=== PATIENT | female | born 2000 | race Caucasian/White ===

== ENCOUNTER 2020-11-09 15:32 | Emergency (ER) | payer SELFPAY ==
--- NOTE | 2020-11-09 15:44 | ED.FEMALEGU ---
HPI - Female Genitourinary General Chief complaint: Urogenital-Female Stated complaint: Poss uti Time Seen by Provider: 11/09/20 16:09 History of Present Illness HPI Narrative: Gume Henderson is a 20 yo female with no PMH who [facility] with complaints of dysuria x1 week. She is here for treatment; states she has lower abdominal pressure; denies concern for STD; denies history of stone, little bit of blood in urine 3 days ago but otherwise has cleared up Related Data Allergies Allergy/AdvReac Type Severity Reaction Status Date / Time No Known Allergies Allergy Unknown Verified 11/09/20 15:39 Review of Systems Review of Systems: Narrative: CONSTITUTIONAL: Denies fever, chills, sweats. EYES: Denies visual changes, redness, discharge. ENT: Denies rhinorrhea, congestion, sore throat, otalgia. CARDIOVASCULAR: Denies chest pain, palpitations, edema. RESPIRATORY: Denies dyspnea, wheezing, cough GASTROINTESTINAL: Denies abdominal pain, nausea, vomiting, diarrhea. GENITOURINARY: Has dysuria, no hematuria, abnormal discharge SKIN: Denies rash or itching. NEUROLOGIC: Denies numbness, or focal weakness. PSYCHIATRIC: Denies anxiety or depression. PMFSH Past Medical History Medical History UTI (urinary tract infection) Family History Family History (Updated 11/09/20 @ 16:11 by Mercedes Ybarra CNP) Other No acute medical problems Social History Social History (Updated 11/09/20 @ 16:24 by Mercedes Ybarra CNP) Smoking packs per day: 1 Smoking cigarettes per day: 20.0 Smoking status: Current every day smoker Alcohol intake: current Alcohol use details: Patient states drinks excessively Comments At time of signature, I agree with nursing past medical, surgical, social and family history. There is no relevant family history pertinent to the presenting complaint. Exam Narrative: Exam Narrative: GENERAL: This is a well-nourished, well-developed patient, in mild distress. HEAD: normocephalic, atraumatic. EYES: Sclera clear/white. Vision is grossly intact. EARS: External ears normal, . Hearing grossly intact. NOSE: External nose normal without nasal discharge, nares without redness, no rhinorrhea. THROAT: Mucous membranes moist, NECK: Neck supple, CARDIOVASCULAR: Regular rate and rhythm without murmurs, gallops, or rubs. RESPIRATORY: Clear to auscultation. Breath sounds equal bilaterally. No wheezes, rales, or rhonchi. GASTROINTESTINAL: Abdomen soft, lower abdominal mild tender, SKIN: warm, intact with no suspicious lesions or rash, good texture and turgor. NEURO: awake, alert, and oriented to person, place and time. There were no obvious focal neurologic abnormalities. Steady gait EXTREMITIES: Normal range of motion. BACK: Nontender without deformity Course Course Emergency Course: Gume Henderson comes to [facility] with complaints of dysuria. She had some blood in her urine couple days ago and today her dipstick on her urine is totally negative UA results are negative Discussed options for why she feels like she discussed pressure abdomen which includes early UTI and dysuria but may also be due to other gynecological conditions such as an STD. She is sexually active without protection with a single partner; after discussion we will send her urine off for GC and chlamydia and will call her if it is positive to come back for treatment, with Rocephin and doxy. Does not believe that that is going to be the problem and and will follow up with her primary care physician if symptoms continue If pain worsens or begins to have fever, she is to the ER Vital Signs Vital signs: Vital Signs Temperature 97.9 F 11/09/20 15:50 Pulse Rate 69 11/09/20 15:50 Respiratory Rate 18 11/09/20 15:50 Blood Pressure 112/71 11/09/20 15:50 Pulse Oximetry 100 11/09/20 15:50 Temperature 97.9 F 11/09/20 15:50 Pulse Rate 69 11/09/20 15:50
[2020-11-09 15:50] VITALS: BP 112/71; PULSE 69; RESP 18; TEMP 36.6; O2SAT 100
== END 2020-11-09 16:25 | disposition home or self-care (01) ==
PROVIDERS: Emergency Provider Nurse Practitioner; PCP Nurse Practitioner Family
DX: R30.0 Dysuria (principal); F17.210 Nicotine dependence, cigarettes, uncomplicated; Z87.440 Personal history of urinary (tract) infections
CPT/HCPCS: 81003; 87086; 87491; 87591; 99213; G0463

== ENCOUNTER 2021-02-03 13:42 | Emergency (ER) | payer SELFPAY ==
[2021-02-03 13:50] VITALS: BP 116/70; PULSE 79; RESP 18; TEMP 36.9; O2SAT 100
--- NOTE | 2021-02-03 13:50 | ED.ABDPAIN ---
HPI - Abdominal Pain General Chief Complaint: Abdominal Pain Stated Complaint: abdominal pain/cramps Time Seen by Provider: 02/03/21 13:52 Source: patient and RN notes reviewed History of Present Illness HPI narrative: Patient is a 20-year-old female who presents the urgent care with complaints of terrible menstrual cramping causing nausea and vomiting. Patient states that this is normal for her and as occur monthly . Patient states that she typically gets someone to cover her shift at work and was unable to find coverage today, therefore she is needing a work note . Patient states that she has been using [id number] Tylenol/ibuprofen for the cramps and does have medication for her nausea at home. Patient states that she has not seen a [facility] in some time and has had these intermittent cramps during her menstrual cycle since she was 16, after a miscarriage. Patient currently denies any urinary symptoms such as burning, frequency, urgency. No other acute complaints. No acute distress noted. Patient aware of the plan of care. Some parts of this dictation were generated by voice recognition software and may contain typographical and/or grammatical inaccuracies. Related Data Allergies Allergy/AdvReac Type Severity Reaction Status Date / Time No Known Allergies Allergy Unknown Verified 11/09/20 15:39 Review of Systems Review of Systems: Narrative: CONSTITUTIONAL: Denies fever, chills, or sweats. EYES: Denies visual changes, redness, or discharge. ENT: Denies rhinorrhea, congestion, sore throat, or otalgia. CARDIOVASCULAR: Denies chest pain, palpitations, or edema. RESPIRATORY: Denies cough or dyspnea. GASTROINTESTINAL: Reports of nausea, vomiting and menstrual cramping GENITOURINARY: Denies dysuria or hematuria. Reports of heavy menstrual bleeding SKIN: Denies rash or itching. MUSCULOSKELETAL: Denies back pain, joint pain, or myalgia. NEUROLOGIC: Denies headache, numbness, or weakness. All other systems reviewed are negative, except as documented in HPI. [facility] [place] Past Medical History Medical History UTI (urinary tract infection) Family History Family History (Updated 11/09/20 @ 16:11 by Mercedes Ybarra CNP) Other No acute medical problems Social History Social History (Updated 11/09/20 @ 16:24 by Mercedes Ybarra CNP) Smoking packs per day: 1 Smoking cigarettes per day: 20.0 Smoking status: Current every day smoker Alcohol intake: current Comments At the time of my signature, I reviewed and agree with the nursing past medical, surgical, social, and family history. There is no relevant family history pertinent to the patient complaint. Exam Narrative: Exam Narrative: GENERAL: This is a well-nourished, well-developed patient, in no apparent distress. HEAD: normocephalic, atraumatic. EYES: PERRL. Sclera clear/white. Vision is grossly intact. EARS: External ears normal NOSE: External nose normal with no obvious nasal discharge, nares without redness, no rhinorrhea. THROAT: Mucous membranes moist NECK: Neck supple CARDIOVASCULAR: Regular rate and rhythm without murmurs, gallops, or rubs. RESPIRATORY: Clear to auscultation. Breath sounds equal bilaterally. No wheezes, rales, or rhonchi. GASTROINTESTINAL: Abdomen soft, diffuse lower abdominal tenderness, nondistended. Bowel sounds are active. SKIN: warm, intact with no suspicious lesions or rash, good texture and turgor. NEURO: awake, alert, and oriented to person, place and time. There were no obvious focal neurologic abnormalities. EXTREMITIES: No clubbing, cyanosis, or edema. BACK: Mild bilateral CVA tenderness Course Vital Signs Vital signs: Vital Signs Temperature 98.4 F 02/03/21 13:50 Pulse Rate 79 02/03/21 13:50 Respiratory Rate 18 02/03/21 13:50 Blood Pressure 116/70 02/03/21 13:50 Pulse Oximetry 100 02/03/21 13:50 Temperature 98.4 F 02/03/21 13:50 Pulse Rate 79
== END 2021-02-03 14:05 | disposition home or self-care (01) ==
PROVIDERS: Emergency Provider Nurse Practitioner Family; PCP Nurse Practitioner Family
DX: N96 Recurrent pregnancy loss (principal); F17.219 Nicotine dependence, cigarettes, with unspecified nicotine-induced disorders
CPT/HCPCS: 99211; G0463

== ENCOUNTER 2022-09-12 13:28 | Emergency (ER) | payer SELFPAY ==
--- NOTE | 2022-09-12 13:30 | ED.URI ---
HPI - URI/Sore Throat General Chief Complaint: Upper Respiratory Infection Stated Complaint: flu Time Seen by Provider: 09/12/22 13:31 Source: patient and RN notes reviewed History of Present Illness HPI Narrative: patient is a 21-year-old female who presents to urgent care with complaints of flu-like symptoms for the last 2 days. Patient states she has a sore throat, nasal congestion, fevers, body aches, cough. Patient has been taking children's Tylenol for her symptoms and states that she has a difficult time swallowing pills. No other acute complaints. No acute distress noted. Patient aware of the plan of care. Some parts of this dictation were generated by voice recognition software and may contain typographical and/or grammatical inaccuracies. Related Data Home Medications Medication Instructions Recorded Confirmed No Home Medications 09/12/22 09/12/22 Allergies Allergy/AdvReac Type Severity Reaction Status Date / Time No Known Allergies Allergy Unknown Verified 09/12/22 13:38 Review of Systems Review of Systems: CONSTITUTIONAL: Reports of fever, chills, sweats EYES: Denies visual changes, redness, or discharge. ENT: reports rhinorrhea, nasal congestion and sore throat CARDIOVASCULAR: Denies chest pain, palpitations, or edema. RESPIRATORY: reports of cough without dyspnea GASTROINTESTINAL: Denies abdominal pain, nausea, vomiting, or diarrhea. GENITOURINARY: Denies dysuria or hematuria. SKIN: Denies rash or itching. MUSCULOSKELETAL: Denies back pain, joint pain. Reports body aches NEUROLOGIC: Denies headache, numbness, or weakness. All other systems reviewed are negative, except as documented in HPI. [facility] Past Medical History Medical History UTI (urinary tract infection) Family History Family History (Updated 11/09/20 @ 16:11 by Mercedes Ybarra, MACK) Other No acute medical problems Social History Social History (Updated 11/09/20 @ 16:24 by Mercedes Ybarra, MACK) Smoking packs per day: 1 Smoking cigarettes per day: 20.0 Smoking status: Current every day smoker Alcohol intake: current Alcohol use details: Patient states drinks excessively Comments At the time of my signature, I reviewed and agree with the nursing past medical, surgical, social, and family history. There is no relevant family history pertinent to the patient complaint. Exam Narrative: GENERAL: This is a well-nourished, well-developed patient. Appears fatigued HEAD: normocephalic, atraumatic. EYES: PERRL. Sclera clear/white. Vision is grossly intact. clear drainage bilaterally. EARS: External ears normal, auditory canals clear and without drainage, TMs normal without perforation. Hearing grossly intact. NOSE: External nose normal with no obvious nasal discharge . Bilateral erythema nares with clear to yellow rhinorrhea THROAT: Mucous membranes moist, moderate erythema in the posterior pharynx with moderate postnasal drainage NECK: Neck supple, non-tender without lymphadenopathy, masses or thyromegaly. CARDIOVASCULAR: Regular rate and rhythm without murmurs, gallops, or rubs. RESPIRATORY: dry cough noted on exam.Clear to auscultation. Breath sounds equal bilaterally. No wheezes, rales, or rhonchi. SKIN: warm, intact with no suspicious lesions or rash, good texture and turgor. NEURO: awake, alert, and oriented to person, place and time. There were no obvious focal neurologic abnormalities. EXTREMITIES: No clubbing, cyanosis, or edema. Course Course Level of Care: Express Care Visit Vital Signs Vital signs: Vital Signs Temperature 98.6 F 09/12/22 13:33 Pulse Rate 97 09/12/22 13:33 Respiratory Rate 16 09/12/22 13:33 Blood Pressure 109/76 09/12/22 13:33 Pulse Oximetry 98 09/12/22 13:33 Temperature 98.6 F 09/12/22 13:39 Pulse Rate 97 09/12/22 13:39 Respiratory Rate 16 09/12/22 13:39 Blood Pressure 109/76 09/12
[2022-09-12 13:33] VITALS: BP 109/76; PULSE 97; RESP 16; TEMP 37; O2SAT 98
[2022-09-12 13:39] VITALS: BP 109/76; PULSE 97; RESP 16; TEMP 37; O2SAT 98
== END 2022-09-12 14:03 | disposition home or self-care (01) ==
PROVIDERS: Emergency Provider Nurse Practitioner Family; PCP Nurse Practitioner Family
DX: J10.1 Influenza due to other identified influenza virus with other respiratory manifestations (principal); F17.210 Nicotine dependence, cigarettes, uncomplicated
CPT/HCPCS: 87804; 99213; G0463

== ENCOUNTER 2024-04-05 16:52 | Emergency (ER) | payer SELFPAY ==
[2024-04-05 17:02] VITALS: BP 119/91; PULSE 84; RESP 18; TEMP 36.6; O2SAT 100
--- NOTE | 2024-04-05 17:40 | ED.FEMALEGU ---
HPI - Female Genitourinary General Chief complaint: Urogenital-Female Stated complaint: Urinary Problem Time Seen by Provider: 04/05/24 17:35 Source: patient and RN notes reviewed Mode of arrival: ambulatory Limitations: no limitations History of Present Illness HPI Narrative: Patient presents today with a one-week history of dysuria and hematuria with a 2 day history of suprapubic discomfort. Denies fever, sweats or chills, nausea or vomiting. She has tried no [id number] treatment prior to arrival. No recent antibiotic use. Related Data Allergies Allergy/AdvReac Type Severity Reaction Status Date / Time No Known Allergies Allergy Unknown Verified 09/12/22 13:38 Review of Systems Review of Systems: CONSTITUTIONAL: Denies body aches, fever, chills, or sweats. EYES: Denies visual changes, redness, or discharge. ENT: Denies rhinorrhea, congestion, sore throat, or otalgia. CARDIOVASCULAR: Denies chest pain, palpitations, or edema. RESPIRATORY: Denies cough or dyspnea. GASTROINTESTINAL: Denies abdominal pain, nausea, vomiting, or diarrhea. GENITOURINARY: + dysuria, hematuria, suprapubic pain SKIN: Denies rash, itching, or wounds. MUSCULOSKELETAL: Denies back pain, joint pain, or myalgia. NEUROLOGIC: Denies headache, numbness, tingling, or weakness. PSYCH: Denies depression or anxiety. PMFSH Past Medical History Medical History UTI (urinary tract infection) Family History Family History Other No acute medical problems Social History Social History Smoking packs per day: 1 Smoking cigarettes per day: 20.0 Smoking status: Current every day smoker Alcohol intake: current Alcohol use details: Patient states drinks excessively Comments At time of signature, I have reviewed and agree with nursing past medical, surgical, social and family history unless otherwise noted. Please see nursing chart for further information. There is no relevant family history pertinent to the presenting complaint Exam Narrative: GENERAL: Well-appearing, well-nourished, and in no acute distress. HEAD: Normocephalic, atraumatic. EYES: EOMI. No redness or drainage. Conjunctivae normal. ENT: Mucous membranes pink and moist. NECK: Normal AROM. CHEST: No respiratory distress. Clear to auscultation. HEART: Regular rate and rhythm. No murmur appreciated. ABDOMEN: Soft, nondistended, normal active bowel sounds.+ suprapubic tenderness. -CVAT EXTREMITIES: Normal range of motion. No edema. SKIN: Warm, dry, no rash. Capillary refill normal. Normal skin turgor. NEURO: No focal deficits. Alert and oriented x3. Gait steady. PSYCH: Normal affect. No signs of depression or anxiety. Course Course Level of Care: Express Care Visit Vital Signs Vital signs: Vital Signs Temperature 97.9 F 04/05/24 17:02 Pulse Rate 84 04/05/24 17:02 Respiratory Rate 18 04/05/24 17:02 Blood Pressure 119/91 H 04/05/24 17:02 Pulse Oximetry 100 04/05/24 17:02 Oxygen Delivery Room Air 04/05/24 17:02 Temperature 97.9 F 04/05/24 17:02 Pulse Rate 84 04/05/24 17:02 Respiratory Rate 18 04/05/24 17:02 Blood Pressure 119/91 H 04/05/24 17:02 Pulse Oximetry 100 04/05/24 17:02 Oxygen Delivery Room Air 04/05/24 17:02 Reviewed MDM - Female Genitourinary MDM Narrative Medical decision making narrative: Urinalysis is consistent with UTI. Prescription for Keflex sent to pharmacy. Patient prefers liquid due to difficulty swallowing pills. Anticipatory guidance given. Differential Diagnosis Differential diagnosis: Likely urinary tract infection, vaginitis, cystitis and other (Pyelonephritis) Lab Data Attestation: I reviewed the patient's lab results. Labs: Urine Glucose Negative
[2024-04-05 17:44] VITALS: BP 119/91; PULSE 84; RESP 18; TEMP 36.6; O2SAT 100
== END 2024-04-05 17:50 | disposition home or self-care (01) ==
PROVIDERS: Emergency Provider Nurse Practitioner
DX: N30.01 Acute cystitis with hematuria (principal); F17.210 Nicotine dependence, cigarettes, uncomplicated
CPT/HCPCS: 81003; 87086; 87088; 99213; G0463